=== PATIENT | female | born 1975 | race African-American/Black ===

== ENCOUNTER 2022-04-19 13:15 | Emergency (ER) | payer OTHER, SELFPAY ==
[2022-04-19] MEDS ORDERED: LORazepam 2 MG/ML SYR.(CARPUJECT) ONE (15:05)
[2022-04-19] MEDS ORDERED: Ketorolac Tromethamine 30 MG/ML VIAL ONE ×2 (15:05→18:35)
[2022-04-19] MEDS ORDERED: predniSONE 20 MG TAB ONE (18:34)
[2022-04-19] MEDS ORDERED: Cyclobenzaprine 10 MG TAB ONE (18:35)
== END 2022-04-19 18:43 | disposition home or self-care (01) ==
LOC: ERS 13:15
DX: M62.830 Muscle spasm of back (principal); X50.0XXA Overexertion from strenuous movement or load, initial encounter
CPT/HCPCS: 96372; 99283; J1885; J2060; J7512